=== PATIENT | male | born 2000 | race African-American/Black ===

== ENCOUNTER 2019-06-19 23:03 | Emergency (ER) | payer SELFPAY ==
[~2019-06-19] VITALS: Ht 175.3 cm; Wt 60.1 kg
[2019-06-19 23:13] VITALS: BP 124/79
== END 2019-06-20 00:26 | disposition home or self-care (01) ==
LOC: ER 23:06
DX: J06.9 Acute upper respiratory infection, unspecified (principal); B34.9 Viral infection, unspecified; A08.4 Viral intestinal infection, unspecified; J45.909 Unspecified asthma, uncomplicated; Z76.0 Encounter for issue of repeat prescription